=== PATIENT | female | born 1985 | race Caucasian/White ===

== ENCOUNTER 2018-12-30 11:30 | Day surgery (SDC) | payer OTHER ==
[2018-12-30] VITALS (13 sets, daily range): BP systolic 96–128; BP diastolic 63–83; PULSE 60–99; RESP 14–28; Ht 160 cm; Wt 53.6 kg
[~2018-12-30] VITALS: Ht 160 cm; Wt 53.6 kg
[2018-12-30] MEDS ORDERED: LACTATED RINGER'S 1,000 ML IV SCH (12:30)
[2018-12-30] MEDS ORDERED: HYDROCODONE/APAP (5/325) TAB PO PRN (12:30)
--- NOTE | 2018-12-30 13:56 | PREAC ---
Date/Time of Note Date/Time of Note DATE: 12/30/18 TIME: 13:55 Anesthesia Eval and Record Evaluation Time Pre-Procedure Interview DATE: 12/30/18 TIME: 13:55 Age 33 Sex female NPO: 8 hrs Preoperative diagnosis deviated septum Planned procedure septoplasty, turbinate reduction Past Medical History Past Medical History: None Surgery & Anesthesia Issues No known issue Meds Anticoagulation: No Beta Jade within 24 hr: No Reason Beta Jade not given: Pt. not on B-Jade Current Medications Acetaminophen/ Hydrocodone Bitart ([place] (5/325)) 1 tab Q6H PRN PO PAIN LEVEL 6-10; Start 12/30/18 at 12:30 Lactated Ringer's 1,000 ml @ 0 mls/hr Q0M IV ; Start 12/30/18 at 12:30 Meds reviewed: Yes Allergies Coded Allergies: gentamicin (Verified Allergy, Severe, HEARING LOST, 12/30/18) Allergies Reviewed: Yes Labs/Studies Labs Reviewed: Reviewed by anesthesiologist test: Negative Pre-procedure Exam Last vitals Vital Signs Date Temp Pulse Resp B/P (MAP) Pulse Ox O2 O2 Flow FiO2 Time Delivery Rate 12/30/18 98.7 99 18 108/75 98 Room Air 12:17 (86) Airway: Adequate mouth opening, Adequate thyromental dist Mallampati: Mallampati II Teeth: Normal Lung: Normal Heart: Normal ASA Physical Status ASA physical status: 1 Emergency: None Planned Anesthetic General/MAC: ETT Pre-operative Attestations Prior to commencing anesthesia and surgery, the patient was re-evaluated, there was verification of: *The patient's identity *The results of appropriate recent lab work and preoperative vital signs *The above evaluation not changing prior to induction *Anesthetic plan, risk benefits, alternative and complications discussed with patient/family; questions answered; patient/family understands, accepts and wishes to proceed. SADE SUTHERLAND Dec 30, 2018 13:56
[2018-12-30] MEDS ORDERED: METOCLOPRAMIDE 10 MG INJ IV PRN (14:00)
[2018-12-30] MEDS ORDERED: DIPHENHYDRAMINE 50 MG INJ IV PRN (14:00)
[2018-12-30] MEDS ORDERED: FENTAnyl 50 MCG/ML VIAL IV PRN ×2 (14:00)
[2018-12-30] MEDS ORDERED: MEPERIDINE 25 MG INJ IV PRN (14:00)
[2018-12-30] MEDS ORDERED: ALBUTEROL 0.083% (NEB) 2.5 MG/3 ML AMP HHN PRN (14:00)
[2018-12-30] MEDS ORDERED: ONDANSETRON 4 MG INJ IV PRN (14:00)
[2018-12-30] MEDS ORDERED: HYDROmorphONE 1 MG/5 ML IV SYRINGE IV PRN ×3 (14:00)
--- NOTE | 2018-12-30 14:00 | HPN ---
Date/Time of Note Date/Time of Note DATE: 12/30/18 TIME: 14:00 Interval H&P Admission Note Pt. seen H&P reviewed: No system changes CHAU MATHIAS MD Dec 30, 2018 14:00
--- NOTE | 2018-12-30 14:00 | SIPON ---
Date/Time of Note Date/Time of Note DATE: 12/30/18 TIME: 14:00 Operative Report Preoperative Diagnosis dns, nfx Postoperative Diagnosis same Operation/Procedure Performed stm,ornfx Surgeon see signature line underwriting assistant na Anesthesia: general Estimated blood loss: 10 - 50 ml's Transfusion Required none Specimen septal bone Grafts/Implants none Complications none CHAU MATHIAS MD Dec 30, 2018 14:00
[2018-12-30] MEDS ORDERED: LIDOCAINE 1%/EPI 30 ML INJ ONE (14:05)
[2018-12-30] MEDS ORDERED: OXYMETAZOLINE 0.05% 15 ML NAS SPRAY NASAL ONE (14:06)
[2018-12-30] MEDS ORDERED: DESFLURANE 15 MIN ONE (14:16)
[2018-12-30] MEDS ORDERED: LIDOCAINE 2% (SDV) 5 ML INJ ONE (14:16)
[2018-12-30] MEDS ORDERED: FENTAnyl 50 MCG/ML VIAL ONE (14:16)
[2018-12-30] MEDS ORDERED: SUCCINYLCHOLINE CHLORIDE 100 MG/5 ML SYG IV ONE ×2 (14:16→16:21)
[2018-12-30] MEDS ORDERED: ROCURONIUM 50 MG INJ ONE (16:21)
[2018-12-30] MEDS ORDERED: PROPOFOL 20 ML ONE (16:21)
[2018-12-30] MEDS ORDERED: SUGAMMADEX SODIUM 200 MG/2 ML VIAL IV ONE (16:21)
--- NOTE | 2018-12-30 18:02 | PAC ---
Date/Time of Note Date/Time of Note DATE: 12/30/18 TIME: 18:02 Post-Anesthesia Notes Post-Anesthesia Note Last documented vital signs Vital Signs Date Temp Pulse Resp B/P (MAP) Pulse Ox O2 O2 Flow FiO2 Time Delivery Rate 12/30/18 68 17 105/70 99 Room Air 17:37 (82) 12/30/18 98.0 16:43 Activity: WNL Respiratory function: WNL Cardiovascular function: WNL Mental status: Baseline Pain reasonably controlled: Yes Hydration appropriate: Yes Nausea/Vomiting absent: Yes SADE SUTHERLAND Dec 30, 2018 18:02
== END 2018-12-30 18:19 | disposition home or self-care (01) ==
LOC: SDS 11:30
PROVIDERS: ATTEND Otolaryngology
DX: J34.2 Deviated nasal septum (principal); J34.3 Hypertrophy of nasal turbinates
CPT/HCPCS: 30140; 30520; 84703; J2175; J2405; J3010; Z7512; Z7610; 88300